=== PATIENT | male | born 1985 | race Caucasian/White ===

== ENCOUNTER 2016-12-27 13:17 | Emergency (ER) | payer OTHER ==
[2016-12-27 13:24] VITALS: BP 129/66
--- NOTE | 2016-12-27 13:54 | ERNOTE ---
Date of Service: 12/27/16 Time Seen by Provider: 12/27/16 13:30 Stated Complaint: COUGH Presenting Symptoms:: cough, sore throat, other - eye drainage and redness Source: patient Exam Limitations: no limitations Immunizations: IMMUNIZATION HX Immunizations Up to Date Yes History of Influenza Vaccine No Hx Pneumococcal Vaccination No Allergies/Adverse Reactions: Allergies No Known Allergies Allergy (Unverified 12/27/16 13:23) Home Medications: HOME MEDICATIONS Benzonatate [Tessalon Perle] 100 mg PO HS #7 capsule 12/27/16 [Last Taken Unknown] Loratadine [Claritin] 10 mg PO DAILY #30 cap 12/27/16 [Last Taken Unknown] - Pain Score Pain Score #1 Pain Score: 0 - History of Present Ilness Narrative: Patient is a 30 year old male who presents to the ED with complaints of mostly dry cough with occasional white sputum, sore throat and drainage from bilateral eyes x 3 weeks. Denies fever, chills, NVD. Admits to being a smoker. Denies worsening SOB Timing: other - x 3 weeks without change Severity: mild Frequency/Possible Cause: Reports: allergen exposure, smoke exposure. Denies: exercise, illness exposure Modifying Factors - Improves: Reports: nothing Modifying Factors - Worsens: Reports: nothing Associated Symptoms: Reports: cough, sore throat, other - eye drainage. Denies : chest pain/soreness, shortness of breath, wheezing, facial pain, nasal congestion, nasal drainage, dizziness, lightheadedness, earache, headache, muscle aches, fever/chills Review of Systems - Review of Systems Constitutional: Present: no symptoms reported. Absent: recent illness, fever, chills, diaphoresis, weakness, fatigue, malaise, weight loss EYE: Present: eye discharge, tearing. Absent: blurred vision, double vision, vision changes ENT: Present: sore throat. Absent: ear pain, ear discharge, pulling on ears, nose pain, nose congestion, nasal drainage, throat swelling Respiratory: Present: cough. Absent: shortness of breath, orthopnea, wheezing, stridor Cardiology: Present: no symptoms reported. Absent: chest pain, palpitations, syncope, edema, claudication Gastrointestinal/Abdominal: Present: no symptoms reported. Absent: nausea, vomiting, diarrhea, constipation, abdominal pain, eating less Genitourinary: Present: no symptoms reported Musculoskeletal: Present: no symptoms reported Skin: Present: no symptoms reported Neurological: Present: no symptoms reported Endocrine: Present: no symptoms reported Hematologic/Lymphatic: Present: no symptoms reported Psych: Present: no symptoms reported - Patient's Past Medical History Patient History - Medical: No pertinent hx Patient History - Cardiac/Respiratory: No pertinent hx Patient History - Cancer: No Hx of Cancer Patient History - Surgical Procedures: No surgical history Patient History - Other: None - Social History Living Situations: home Psych History: No pertinent hx Smoking Status: Current every day smoker - Immunizations Immunizations Up to Date: Yes Hx Pneumococcal Vaccination: No History of Influenza Vaccine: No Physical Exam - Physical Exam General Appearance: Present: wd/wn, alert, no apparent distress Head Exam: Present: normal inspection, no evidence of injury Eye Exam: Normal inspection: bilateral, PERRL: bilateral, Scleral icterus: right , Eye drainage: right - scant right drainage Ears, Nose, Throat: Present: normal ENT inspection, normal pharynx. Absent: pharyngeal erythema, pharyngeal swelling, tonsillar exudate, tonsillar swelling , dry mucous membranes Neck: Present: normal inspection, nontender Respiratory: Present: no respiratory distress, normal breath sounds, no accessory muscle use, chest nontender, lungs clear Cardiovascular/Chest: Present: regular rate, rhythm, no murmur, normal peripheral pulses Peripheral Pulses: N=norm/S=strong/W=weak/B=bound/A=absent: Radial (R): Normal, Radial (L): Normal Gastrointestinal/Abdominal: Present: normal bowel sounds, nontender, nondistended, soft, no organomegaly Rectal Exam: Present: deferred Male Genitals Exam: Present: deferred Back Exam: Present: normal inspection, normal range of motion, no CVA tenderness , no vertebral tenderness Extremity Exam: Present: normal inspection, non-tender, normal range of motion, no edema Neurological Exam: Present: alert, oriented, normal mood/affect, no motor/ sensory deficits Skin Exam: Present: normal color, warm/dry Lymphatic Exam: Present: no adenopathy ED Progress - Vital Signs Patient's Vital Signs:: I have reviewed the patient's vital signs. Vital Signs: Vital Signs 12/27/16 13:21 Temperature 36.9 C Pulse Rate 90 Respiratory 16 Rate Blood Pressure 129/66 O2 Sat by Pulse 100 Oximetry - Progress/Reassessment Chief Complaint: Upper Respiratory Symptoms Departure - Departure Clinical Impression: Cough, Smoking addiction Seasonal allergies Qualifiers: Chronicity: acute Allergic rhinitis trigger: unspecified Qualified Code(s): J30.2 - Other seasonal allergic rhinitis Disposition: Home self-care Condition: Good Instructions: Smoking Cessation, Tips for Success, [id number], Allergies, [id number] Additional Instructions: Attempt to quit smoking or at least decrease intake. Claritin for allergies, [place] or sucrets for sore throat. Do alcohol or sleeping pills with cough medicine at night. Return if shortness of breath, difficulty breathing, chest pain or worsening concerns Referrals: Carlos Vega MD [Staff Physician] - Prescriptions: Benzonatate [Tessalon Perle] 100 mg PO HS #7 capsule Loratadine [Claritin] 10 mg PO DAILY #30 cap
== END 2016-12-27 13:57 | disposition home or self-care (01) ==
LOC: ER 13:17
DX: R05 Cough (principal); Z71.6 Tobacco abuse counseling; F17.200 Nicotine dependence, unspecified, uncomplicated; J30.2 Other seasonal allergic rhinitis